=== PATIENT | male | born 1940 | race Caucasian/White ===

== ENCOUNTER 2019-05-24 11:57 | Inpatient (IN) | payer MEDICARE, BC ==
--- NOTE | 2019-05-24 12:09 | ED ---
Shortness of Breath - HPI Summary HPI Summary: The patient is an 80 y/o M arriving via ambulance to [facility] from [facility] with a chief complaint of SOB today. Labs were drawn at [facility] to find hemoglobin of 3.8. He endorses fatigue and denies any blood in stool or CP. En route, patient on 2L with O2 sat in high 80s%. CPAP at home. He is currently on Eliquis. PMHx: atrial fibrillation, DVT, CAD, HTN, HLD, angioplasty, CHF, COPD, sleep apnea, anemia, diabetes, chronic renal failure, dementia. Former smoker, no EtOH, no substance use. Medications reviewed. Allergies noted. 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 - [facility], EMS Onset/Duration: Still Present Current Severity: Moderate Dyspnea At: Rest Aggravating Factors: Nothing Alleviating Factors: Oxygen Associated Signs & Symptoms: Negative - Allergy/Home Medications Allergies/Adverse Reactions: Allergies Allergy/AdvReac Type Severity Reaction Status Date / Time clopidogrel Allergy Intermediate Rash Verified 05/24/19 14:03 Iodinated Contrast Media Allergy Intermediate Rash Verified 05/24/19 14:03 diphenhydramine AdvReac Intermediate Agitation Verified 05/24/19 14:03 pseudoephedrine AdvReac Intermediate Agitation Verified 05/24/19 14:03 morphine AdvReac Mild Hallucinati Verified 05/24/19 14:03 ons Home Medications: Home Medications Amiodarone TAB* [Cordarone Tab*] 200 mg PO QAM 06/06/12 [History Confirmed 05/24] Donepezil TAB* [Aricept 5 MG TAB*] 10 mg PO BEDTIME 06/06/12 [History Confirmed 05/24/19] Isosorbide Mononitrate ER TAB* [Imdur ER TAB*] 30 mg PO DAILY 02/24/15 [History Confirmed 05/24/19] Metoprolol Tartrate TAB* [Lopressor TAB*] 25 mg PO BID 02/24/15 [History Confirmed 05/24/19] Acetaminophen TAB* [Tylenol TAB*] 650 mg PO TID PRN 05/24/19 [History Confirmed 05/24/19] Al Hydrox/Mg Hydrox/Simet LIQ* [Maalox Plus*] 30 ml PO Q6H PRN 05/24/19 [ History Confirmed 05/24/19] Albuterol/Ipratropium NEB.SONIA* [Duoneb (Albuterol 2.5 MG/Ipratropium 0.5 MG)] 1 neb INH Q6H PRN 05/24/19 [History Confirmed 05/24/19] Apixaban* [Eliquis*] 5 mg PO BID 05/24/19 [History Confirmed 05/24/19] Artificial Tears* 15 ML BTL [Polyvinyl Alcohol 1.4% OPTH*] 4 drop BOTH EYES BID 05/24/19 [History Confirmed 05/24/19] Atorvastatin* [Lipitor*] 20 mg PO BEDTIME 05/24/19 [History Confirmed 05/24/19] Bisacodyl 10 mg SUPP [Dulcolax Supp*] 10 mg CO DAILY PRN 05/24/19 [History Confirmed 05/24/19] Diclofenac 1% GEL (NF) [Voltaren 1% GEL (NF)] 1 applic TOPICAL BID 05/24/19 [ History Confirmed 05/24/19] Dulaglutide (NF) [Trulicity (NF)] 1.5 mg SUBCUT TH 05/24/19 [History Confirmed 05/24/19] Eucalyptus/Menthol [Cough Drops] 5 mg PO Q4H PRN 05/24/19 [History Confirmed ] Famotidine TAB* [Pepcid 20 MG TAB*] 20 mg PO DAILY 05/24/19 [History Confirmed 05/24/19] Furosemide TAB* [Lasix TAB*] 20 mg PO BID 05/24/19 [History Confirmed 05/24/19] Insulin GLARGINE(*) [Lantus 100 unist/ml 10 ml VIAL (*)] 100 units SUBCUT QAM [History Confirmed 05/24/19] Insulin Glargine (Nf) [Toujeo Solostar Pen 300 units/ml 1.5 ml x 3 Pens (NF)] 120 units SUBCUT BEDTIME 05/24/19 [History Confirmed 05/24/19] Ketoconazole [Nizoral A-D] 1 applic TOPICAL MO 05/24/19 [History Confirmed 05/24] Lidocaine PATCH 5%* [Lidoderm 5% Patch*] 4 % TRANSDERM DAILY 05/24/19 [History Confirmed 05/24/19] Magnesium Hydroxide LIQ* [Milk of Magnesia LIQ*] 30 ml PO DAILY PRN 05/24/19 [ History Confirmed 05/24/19] Methyl Salicylate/Menthol [Muscle Rub Cream] 1 applic TOPICAL BID 05/24/19 [ History Confirmed 05/24/19] SitaGLIPtin (NF) [Januvia (NF)] 75 mg PO DAILY 05/24/19 [History Confirmed 05/24] Venlafaxine CAP (NF) [Effexor CAP (NF)] 75 mg PO DAILY 05/24/19 [History Confirmed 05/24/19] PMH/Surg Hx/FS Hx/Imm Hx Endocrine/Hematology History: Reports: Hx Anticoagulant Therapy - coumadin, Hx Diabetes, Hx Anemia Cardiovascular History: Reports: Hx Angioplasty, Hx Congenital Heart Disease, Hx Congestive Heart Failure, Hx Coronary Artery Disease, Hx Hypercholesterolemia , Hx Hypertension, Hx Peripheral Vascular Disease, Other Cardiovascular Problems /Disorders - had a cath previously, a fib, CAD Denies: Hx Pacemaker/ICD, Hx Syncope Respiratory History: Reports: Hx Chronic Obstructive Pulmonary Disease (COPD), Hx Seasonal Allergies - takes terell, Hx Sleep Apnea - CPAP at home Denies: Hx Asthma, Other Respiratory Problems/Disorders GI History: Reports: Hx Gastroesophageal Reflux Disease - takes omeprazole, Hx Irritable Bowel, Other GI Disorders - History of Pancreatitis Denies: Hx Ulcer History: Reports: Hx Chronic Renal Failure, Other Problems/Disorders - CKD Musculoskeletal History: Reports: Hx Arthritis, Hx Back Problems - Degenerative Spinal Disc Disease Denies: Other Musculoskeletal History Sensory History: Reports: Hx Cataracts - recent dx, Hx Contacts or Glasses, Hx Hearing Aid Denies: Hx Glaucoma Opthamlomology History: Reports: Hx Cataracts - recent dx, Hx Contacts or Glasses Denies: Hx Glaucoma Neurological History: Reports: Hx Dementia, Hx Headaches Denies: Hx Seizures, Other Neuro Impairments/Disorders Psychiatric History: Reports: Hx Anxiety, Hx Depression Denies: Hx Eating Disorder, Hx Panic Disorder, Hx of Violent Episodes Against Others - Cancer History Cancer Type, Location and Year: Status Post Angioplasty; Status Post Uvulopalatopharyngoplasty; Status Post Rotator Cuff Repair - Surgical History Surgical History: Yes Surgery Procedure, Year, and Place: TOTAL KNEE REPLACEMENT, VASECTOMY, HERNIA REPAIR, T&A, ROTATOR CUFF REPAIR LT SHOULDER, HEART CATHTERIZATION,NO STENTS Hx Anesthesia Reactions: No - Immunization History Date of Tetanus Vaccine: Up to Date Date of Influenza Vaccine: NONE - Family History Known Family History: Positive: Cardiac Disease - Social History Alcohol Use: None Hx Substance Use: No Substance Use Type: Reports: None Hx Tobacco Use: Yes Smoking Status (MU): Former Smoker Type: Cigarettes Length of Time of Smoking/Using Tobacco: 20 years Have You Smoked in the Last Year: No Review of Systems Positive: Fatigue Negative: Chest Pain Positive: Shortness Of Breath Negative: Other - blood in stool All Other Systems Reviewed And Are Negative: Yes Physical Exam - Summary Physical Exam Summary: Constitutional: Well-developed, Well-nourished, Alert. Appears weak/fatigued. (- ) Distressed Skin: Pale, Warm, Dry HENT: Normocephalic; Atraumatic Eyes: Conjunctiva normal Neck: Musculoskeletal ROM normal neck. (-) JVD, (-) Stridor, (-) Tracheal deviation Cardio: Rhythm regular, rate normal, Heart sounds normal; Intact distal pulses; The pedal pulses are 2+ and symmetric. Radial pulses are 2+ and symmetric. (-) Murmur Pulmonary/Chest wall: Effort normal. (-) Respiratory distress, (-) Wheezes, (-) Rales Abd: Soft, (-) tenderness, (+) Distension, (-) Guarding, (-) Rebound, Umbilical hernia noted Musculoskeletal: (+) BLE Edema Lymph: (-) Cervical adenopathy Neuro: Alert, Oriented x3, No focal deficits Psych: Mood and affect Normal Rectal: Brown stool, No gross blood Triage Information Reviewed: Yes Vital Signs Reviewed: Yes Procedures - Sedation Patient Received Moderate/Deep Sedation with Procedure: No Diagnostics - Laboratory Result Diagrams: 05/25/19 06:22 05/25/19 06:19 Lab Statement: Any lab studies that have been ordered have been reviewed, and results considered in the medical decision making process. - Radiology CXR Radiology Interpretation Completed By: Radiologist Summary of Radiographic Findings: Impression: Pulmonary interstitial edema with left basilar atelectasis versus consolidation. This imaging report was reviewed by Dr. Hawley. - EKG 1228 Cardiac Rate: NL - 63 BPM EKG Rhythm: Sinus Rhythm Summary of EKG Findings: An EKG at 1228 reveals normal sinus rhythm at 63 BPM. No ischemic changes. This EKG was reviewed and interpreted by Dr. Hawley. Re-Evaluation - Re-Evaluation First Eval Re-Evaluation Time: 13:45 Comment: Discussed results and plan for admission. Course/Dx - Course Course Of Treatment: 80 y/o M arriving via ambulance from [facility] with concern for SOB, fatigue, and labs drawn today with hgb of 3.8. Denies hematochezia, CP. Currently on Eliquis. PMHx: atrial fibrillation, DVT, CAD, HTN , HLD, angioplasty, CHF, COPD, sleep apnea, anemia, diabetes, chronic renal failure, dementia. Physical exam significant for patient appearing weak/fatigued , soft and distended although non-tender abdomen, umbilical hernia noted, pale skin, no focal deficits, and BLE edema. Rectal exam shows brown stool, negative for gross blood. Patient placed on court recording monitor. IV access obtained. Patient received fluids. Blood work significant for abnormalities including elevated WBCs of 14, anemia with RBCs of 1.5 and H&H of 3.8 and 13, MCH of 25, MCHC of 30, RDW of 20, abs neuts of 11.5, abs lymphs of 0.9, abs monos of 1.3, INR of 2.55, PTT of 38.6, BUN of 58, creatinine of 1.59, glucose of 106, calcium of 8.5. Negative troponin. RBCs administered for anemia. Stool occult positive for blood. An EKG at 1228 reveals normal sinus rhythm at 63 BPM, no ischemic changes. CXR impression reveals pulmonary interstitial edema with left basilar atelectasis versus consolidation. Patient received Kcentra. Dr. Hyde from hospitalist services accepts the patient for admission, pending Abd/Pel CT. All results discussed. Patient agreeable with plan. - Diagnoses Provider Diagnoses: Symptomatic anemia, GI bleed - Physician Notifications Discussed Care of Patient With: Julio Hyde - hospitalist Time Discussed With Above Provider: 13:00 Instructed by Provider To: Other - I discussed the patient's case with Dr. Hyde , who accepts the patient for admission, pending Abd/Pel CT. Discharge ED - Sign-Out/Discharge Documenting (check all that apply): Patient Departure - Patient accepted for admission by Dr. Hyde. - Discharge Plan Condition: Stable Disposition: ADMITTED TO [facility] - Billing Disposition and Condition Condition: STABLE Disposition: Admitted to [facility] - Attestation Statements Document Initiated by Jose: Yes Documenting Scribe: Radha Salcedo Provider For Whom Jose is Documenting (Include Credential): Dr. Jose Cruz Hawley DO Scribe Attestation: IRadha scribed for Dr. Jose Cruz Hawley DO on 05/25/19 at 1004. Scribe Documentation Reviewed: Yes Provider Attestation: The documentation as recorded by the Radha kulkarni accurately reflects the service I personally performed and the decisions made by me, Dr. Jose Cruz Hawley DO Status of Scribe Document: Viewed
[2019-05-24] MEDS ORDERED: NS 0.9% 1000 ML** 1,000 ML IV ONE (12:10)
[2019-05-24 12:57] LABS: Activated Partial Thrombo Time 38.6 seconds (26.0-38.0); INR 2.55 (0.82-1.09)
[2019-05-24 12:58] LABS: ABS Basophils 0.1 10^3/ul (0-0.2); ABS Eosinophils 0.1 10^3/ul (0-0.6); ABS Lymphocytes 0.9 10^3/ul (1.0-4.8); ABS Monocytes 1.3 10^3/ul (0-0.8); ABS Neutrophils 11.5 10^3/ul (1.5-7.7); ABS Nucleated RBC 0.1 10^3/ul; Eosinophil % 0.7 %; Hematocrit 13 % (42-52); Hemoglobin 3.8 g/dL (14.0-18.0); Lymphocyte % 6.6 %; Mean Corpuscular HGB Conc 30 g/dL (31-36); Mean Corpuscular Hemoglobin 25 pg (27-31); Mean Corpuscular Volume 86 fL (80-94); Mean Platelet Volume 7.6 fL (7.4-10.4); Nucleated Red Blood Cells % 0.9; Platelet Count 211 10^3/uL (150-450); Red Cell Distribution Width 20 % (10-15)
[2019-05-24 13:10] LABS: ALT 27 U/L (7-52); AST 28 U/L (13-39); Albumin 3.5 g/dL (3.2-5.2); Alkaline Phosphatase 76 U/L (34-104); Anion Gap 5 mmol/L (2-11); BUN/Creatinine Ratio 36.5 (8-20); Blood Urea Nitrogen 58 mg/dL (6-24); CO2 Carbon Dioxide 27 mmol/L (22-32); Calcium 8.5 mg/dL (8.6-10.3); Chloride 103 mmol/L (101-111); EGFR African American 50.9 (>60); EGFR Non-African American 42.1 (>60); Globulin 3.4 g/dL (2-4); Glucose 106 mg/dL (70-100); Potassium 4.4 mmol/L (3.5-5.0); Sodium 135 mmol/L (135-145); Total Protein 6.9 g/dL (6.4-8.9)
[2019-05-24 13:11] LABS: Troponin I 0.01 ng/mL (<0.03)
[2019-05-24] MEDS ORDERED: Dextrose 50% Syringe 50 ML* 25 GM/50 ML SYRINGE IV PUSH PRN (14:29)
--- NOTE | 2019-05-24 16:29 | HP ---
CC: Romelia Sanz NP * HISTORY AND PHYSICAL: DATE OF ADMISSION: 05/24/19 PRIMARY CARE PROVIDER: Romelia Sanz NP; [facility]. ATTENDING PHYSICIAN: Dr. Julio Hyde * (dictated by HONORIO vAilez). CHIEF COMPLAINT: Shortness of breath. HISTORY OF PRESENT ILLNESS: Mr. Pop is an 79-year-old male with a past medical history of CAD, diabetes, hypertension, hyperlipidemia, atrial fibrillation, on anticoagulation, who presented to the ER with complaints of shortness of breath. He states he is unsure how long he has been short of breath. When asked why he is here, he states "I don't know, you tell me." He is at times evasive in answering questions and tangential. He is seen in the ER wearing oxygen. He states he cannot remember if he usually wears oxygen, but it is reported that he does not wear oxygen at baseline. He denies blood in the stool and denies melena, although he is a poor historian. He denies recent fall or injury. No head or neck injury. He is a resident of [facility]. The patient does have a history of atrial fibrillation, for which he takes apixaban. In the ER, the patient received a full workup. He has a leukocytosis, severe anemia with hemoglobin of 3.8, MCV of 86. Creatinine is elevated at 1.59. Stool for occult blood is positive. EKG shows a rate of 63 with a first-degree AVB, T- wave inversion in aVL, flat T waves in V4 to V6. Chest x-ray shows pulmonary edema with left lower lobe atelectasis versus consolidation. He is receiving IV fluid normal saline at 150 cc per hour in the ER. Hospitalist team was asked to evaluate the patient for admission. PAST MEDICAL HISTORY: 1. Coronary artery disease. 2. Diabetes mellitus type 2, insulin-dependent. 3. Hypertension. 4. Hyperlipidemia. 5. Atrial fibrillation, on anticoagulation. 6. COPD. 7. GERD. 8. Depression. PAST SURGICAL HISTORY: Obtained from chart as the patient unable to contribute. 1. Left total knee arthroplasty. 2. Tonsillectomy/adenoidectomy. 3. Left ulnar nerve release. 4. UPPP. 5. Vasectomy. 6. Hernia. 7. Left shoulder repair. 8. Cardiac cath. HOME MEDICATIONS: 1. Acetaminophen 650 mg p.o. t.i.d. p.r.n. 2. Maalox 30 mL p.o. q.6 hours p.r.n. 3. DuoNeb 1 neb inhalation q.6 hours p.r.n. 4. Amiodarone 200 mg p.o. daily. 5. Apixaban 5 mg p.o. b.i.d. 6. Artificial Tears 4 drops to both eyes b.i.d. 7. Atorvastatin 20 mg p.o. at bedtime. 8. Bisacodyl 10 mg suppository [place] daily p.r.n. 9. Diclofenac 1% gel 1 application topically b.i.d. 10. Donepezil 10 mg p.o. at bedtime. 11. Dulaglutide 1.5 mg subcu . 12. Cough drops 5 mg p.o. q.4 hours p.r.n. 13. Famotidine 20 mg p.o. daily. 14. Furosemide 20 mg p.o. b.i.d. 15. Insulin glargine 120 units subcu q.h.s., 100 units subcu q.a.m. 16. Isosorbide mononitrate 30 mg p.o. daily. 17. Ketoconazole 1 application topically Monday. 18. Lidocaine patch 5% transdermal daily. 19. Magnesium hydroxide 30 mL p.o. daily p.r.n. 20. Muscle Rub 1 application topically b.i.d. 21. Metoprolol tartrate 25 mg p.o. b.i.d. 22. Sitagliptin 75 mg p.o. daily. 23. Venlafaxine 75 mg p.o. daily. ALLERGIES/ADVERSE REACTIONS: CLOPIDOGREL, rash; IODINATED CONTRAST, rash; DIPHENHYDRAMINE, agitation; PSEUDOEPHEDRINE, agitation; MORPHINE, hallucinations. FAMILY HISTORY: Brother had heart disease, sister had breast cancer. No family history of CVA or diabetes. SOCIAL HISTORY: The patient states he was a former smoker, 20-pack years but quit "a long time ago." He does not use alcohol. He lives at [facility]. He is . In the event that he is unable to make his own medical decisions, he has appointed his , Fina Pop to be his surrogate decision maker. REVIEW OF SYSTEMS: A 14-point review of systems has been performed and all the pertinent positives and negatives are in the HPI. All other systems are negative. PHYSICAL EXAMINATION GENERAL: Mr. Pop is a well-developed, well-nourished, obese, pale, elderly white male, who is sitting up in bed. He has some increased work of breathing and is currently on 2 L of oxygen. HEENT: PERRL. EOMI. Hearing is grossly intact. Oral mucous membranes are moist. There are no lesions. The pharynx is clear. Tongue is at midline. Palate elevates symmetrically. PULMONARY: Symmetrical chest expansion. No use of accessory muscles. Clear to auscultation bilaterally anteriorly without rhonchi, wheeze, or rales. CARDIOVASCULAR: Regular rate and rhythm with S1, S2 present. There is a systolic murmur. No rubs, clicks, or gallops. There is no JVD. There is 1+ pitting bilateral lower extremity edema with SANDRA stockings in place. ABDOMEN: Bowel sounds in all quadrants. Soft and nontender to palpation. There are no areas of ecchymosis. MUSCULOSKELETAL: Spine is nontender to palpation. There are no areas of ecchymosis in the trunk anteriorly or posteriorly. NEURO: The patient is awake. He is alert and oriented x3. He moves his extremities although slowly. DIAGNOSTIC STUDIES/LAB DATA: 1. CBC: WBC 14.0, RBC 1.5, HGB 3.8, HCT 13, MCV 86, platelets 211. 2. CMP: Sodium 135, potassium 4.4, chloride 103, carbon dioxide 27, BUN 58, creatinine 1.59, glucose 106. 3. Stool for occult blood positive. 4. EKG: Rate of 63, first-degree AV block, T-wave inversion in aVL, flat T- wave in V4 to V6. 5. Chest x-ray: Impression: Pulmonary interstitial edema with left basilar atelectasis versus consolidation. ASSESSMENT AND PLAN: Mr. Pop is an 79-year-old male with a past medical history of coronary artery disease, diabetes insulin-dependent, hypertension, hyperlipidemia, paroxysmal atrial fibrillation, on apixaban, who presented to the ER today with severe anemia and probable gastrointestinal bleed. The patient will be admitted for: 1. Anemia with gastrointestinal bleeding. The patient presents with shortness of breath and an H and H of 3.8 and 13 respectively. He is on apixaban. He will be given Kcentra. He will receive 2 units of packed red blood cells. We will check H and H q.6 hours. He will be placed on pantoprazole b.i.d. GI has been consulted and plans to see the patient at this time. They recommend sips of clear liquids with advancement to clear liquids if the patient adamantly requests food. He will then be n.p.o. after midnight for possible scoping in the morning. We will continue to monitor his H and H and give packed cells as necessary. 2. Acute kidney injury. The patient presents with a creatinine of 1.59. He does not appear to have baseline chronic kidney disease. His acute kidney injury is likely due to his severe anemia and hypoperfusion of the kidneys. We will recheck kidney function in the morning after the patient receives packed cells. 3. Chest x-ray abnormality. Chest x-ray shows pulmonary edema and atelectasis versus consolidation in the left lung. The patient also has associated leukocytosis but is afebrile and states he feels generally well. He is short of breath, although this is likely due to his anemia. At this time, I have a low suspicion for pneumonia and will therefore hold off on antibiotics. We will recheck CBC in the a.m. to trend the patient's white blood cell count as well as his symptoms. 4. Diabetes mellitus. The patient is on dulaglutide, Toujeo, and sitagliptin at home. We will hold the patient's sitagliptin and dulaglutide. He takes long -acting insulin, 100 units q.a.m., 120 units q.p.m. At this time in the setting of him being n.p.o., we will order 40 units b.i.d. and monitor blood sugars with fingersticks a.c. and h.s. that will be covered by lispro sliding scale. 5. Coronary artery disease. Continue home medications metoprolol, isosorbide, furosemide. 6. Atrial fibrillation. Continue amiodarone. Hold apixaban at this time in the setting of gastrointestinal bleeding. 7. Hyperlipidemia. Continue atorvastatin. 8. Gastroesophageal reflux disease. We will hold famotidine at this time. He has been placed on pantoprazole IV b.i.d. 9. Depression. Continue venlafaxine. 10. Dementia. Continue donepezil. 11. DVT prophylaxis: According to DVT Risk Assessment, the patient scores 4, placing him at high risk. He will be placed on SCDs. We will hold his home anticoagulation in the setting of gastrointestinal bleeding. 12. Code status: DNR. TIME SPENT: Approximately 60 minutes was spent on this admission, greater than half that time was spent [id number] with the patient obtaining history, performing a physical, and reviewing the plan of care. The case has been discussed with my attending, Dr. Hyde, who is in agreement with the plan of care. HONORIO COLÓN [id number]/CPS #: [id number] MTDD
[2019-05-24 17:40] LABS: % Iron Saturation 4 % (15-55); Iron 23 ug/dL (50-212); Total Iron Binding Capacity 573 mcg/dL (250-450); Transferrin 409 mg/dL (203-362)
[2019-05-24] MEDS: Insulin LISPRO* 1 UNITS UNIT SUBCUT SCH ×2 (17:44→21:43)
[2019-05-24 18:02] LABS: Ferritin 8.6 ng/mL (24-336)
[2019-05-24 18:06] LABS: Folate 5.16 ng/mL (>3.99)
[2019-05-24] MEDS: Pantoprazole IV* 40 MG IV SCH ×2 (18:27→22:42)
--- NOTE | 2019-05-24 18:42 | CONS ---
CC: HONORIO Avilez GASTROENTEROLOGY CONSULT REPORT: DATE OF CONSULT: 05/24/19 REQUESTING PROVIDER: HONORIO Avilez REASON FOR CONSULT: Severe anemia. HISTORY OF PRESENT ILLNESS: Mr. Pop is an 79-year-old gentleman with multiple medical comorbidities including CAD; diabetes type 2 on insulin, AFib on anticoagulation; COPD, sleep apnea, CKD, and chronic anemia, who is admitted with severe symptomatic anemia. History is largely obtained from the chart as Mr. Pop is a poor historian. He is aware that he is in the hospital in [facility], although he is not aware of the date or time. Apparently, he was brought to the ED for shortness of breath, which he complained about at [facility] where he is a resident. He is not aware of how long he has been feeling that way. Denies any other symptoms. Initial studies in the ED were notable for leukocytosis and anemia with a hemoglobin of 3.8. The patient was admitted to the medicine unit and given 1 unit of blood GI consulted. On interview, Mr. Pop says that he has been having fairly regular bowel movements, although he is unable to estimate how often these occur. He has not been having more frequent bowel movements or diarrhea than normal. He has not noticed any melena or hematochezia. Of note, the patient had a brown stool that was cleaned by nursing. Hemoccult positive, but no gross blood noted. Denies any abdominal pain, nausea, vomiting, reflux, dysphagia, change in bowel habits. No visible bleeding elsewhere noted. The patient is on Eliquis for atrial fibrillation. Has a history of intermittent anemia. Was seen by GI in 2015 for anemia. EGD at that time demonstrated mild chronic gastritis. It seems that he had had a colonoscopy in [facility] within the last few years , although I do not have a report to review today. PAST MEDICAL HISTORY: 1. Coronary artery disease. 2. Type 2 diabetes, on insulin. 3. Hypertension. 4. Hyperlipidemia. 5. Atrial fib, on anticoag. 6. COPD. 7. Sleep apnea. 8. Depression. 9. Anemia. 10. Question dementia. PAST SURGICAL HISTORY: Total knee replacement, vasectomy, hernia repair, tonsillectomy and adenoids removed, rotator cuff repair, heart catheterization. HOME MEDICATIONS: 1. Acetaminophen as needed. 2. Maalox as needed. 3. DuoNeb as needed. 4. Amiodarone 200 mg daily. 5. Apixaban 5 mg twice daily. 6. Atorvastatin 20 mg at bedtime. 7. Donepezil 10 mg at bedtime. 8. Dulaglutide 1.5 mg subcutaneously weekly. 9. Famotidine 20 mg daily. 10. Furosemide 20 mg twice daily. 11. Insulin glargine 100 units in the morning and 120 units at bedtime. 12. Isosorbide mononitrate 30 mg daily. 13. Magnesium hydroxide p.r.n. 14. Metoprolol 25 mg twice daily. 15. Sitagliptin 75 mg daily. 16. Venlafaxine 75 mg daily. ALLERGIES: Allergies per chart include CLOPIDOGREL, IODINATED CONTRAST, DIPHENHYDRAMINE, PSEUDOEPHEDRINE, and MORPHINE. FAMILY HISTORY: No known GI or liver disease. SOCIAL HISTORY: Former smoker, quit a number of years ago. No alcohol or drug use. The patient denies heavy alcohol use in the past. Resident at [facility]. . REVIEW OF SYSTEMS: A 12 point complete review of systems notable only for shortness of breath. PHYSICAL EXAM: Vitals: Afebrile, heart rate in the 50s, blood pressure 119/45, 99% on 2 L. General: Extremely pale, obese gentleman. Elderly. No acute distress. HEENT: Moist mucous membranes. Cardiovascular: Regular rate and rhythm. Pulmonary: Clear in the anterior lung mosquera. Belly breathing noted with some increased work of breathing with conversation. Abdomen: Soft. Minimally tender in the upper abdomen. Distended with suspected fluid wave. Extremities: Edema with leg wraps in place. Skin: Very pale. Neuro: A and O x1 to 2. He knows that he is in [facility], but does not answer [place] when asked what town and city we are in. He is unaware of either month or year. DIAGNOSTIC STUDIES/LAB DATA: Labs reviewed. White count 14, hemoglobin 3.8, hematocrit 13. Last labs on file include a hemoglobin of 12.1 in May 2018. Current MCV is 86, platelet count 211. INR 2.55. BUN 58, creatinine 1.59. AST 28, ALT 27, bilirubin 0.6. BNP 354, troponin 0.01. Imaging: CT abdomen and pelvis without contrast was performed. There was left more than right bibasilar airspace opacification with air bronchograms concerning for pneumonia. There was also decreased liver volume with new cirrhotic morphology. No splenomegaly was noted. There was moderate predominantly water attenuation ascites, although there was increase in attenuation in the perisplenic region. Per Radiology, it was unclear if this was artifact or not. There was generalized anasarca, diverticulosis, and cardiomegaly also noted on the CT scan. Chest x-ray read as pulmonary interstitial edema with left basilar atelectasis versus consolidation. IMPRESSION AND RECOMMENDATIONS: Mr. Pop is an 79-year-old gentleman with multiple medical comorbidities including atrial fibrillation, on anticoagulation ; chronic obstructive pulmonary disease; type 2 diabetes, on insulin; chronic kidney disease; coronary artery disease; and question dementia, who is admitted with acute on chronic severe anemia. Hemodynamically stable. No overt bleeding per report or on exam. Stool was noted to be brown, although Hemoccult positive. The patient has anasarca and ascites with possible cirrhotic morphology seen on CT. This would be a new diagnosis. As we do not have any labs for the past year, I am not certain the rate of hemoglobin drop, although I suspect that the anemia is subacute to chronic in nature. Source could be upper or lower.Eliquis is certainly a risk factor for oozing or bleeding. I agree with stabilization with transfusion. Recommend optimizing patient from a cardiopulmonary standpoint given fluid overload with possible pneumonia. Once stable, we can discuss timing of endoscopic evaluation with an EGD. In the interim, I recommend IV PPI b.i.d, trending CBC every 6 to 8 hours, and holding the anticoagulation. No NSAIDs. Recommend obtaining an ultrasound of the abdomen with particular attention to the liver to evaluate for any liver mass. This study can also evaluate for intraabdominal hematoma (considered given the possible higher attenuation in the ascites). Please check iron studies, vitamin B12, folate, and chronic hepatitis panel. Clear diet okay for now as the patient appears stable without any active bleeding. Thank you very much for this consult. Please contact GI if any acute clinical change. [id number]/[facility] #: [id number] [facility]
[2019-05-24] MEDS: Analgesic BALM* 114 GM TOPICAL SCH (20:48)
[2019-05-24] MEDS: Furosemide TAB* 20 MG PO SCH (20:48)
[2019-05-24] MEDS: Artificial Tears* 15 ML BTL BOTH EYES SCH (20:49)
[2019-05-24] MEDS: Atorvastatin* 20 MG TAB PO SCH (20:49)
[2019-05-24] MEDS ORDERED: Insulin GLARGINE(*) 1 UNITS UNIT SUBCUT SCH (21:00)
[2019-05-24] MEDS: Metoprolol Tartrate TAB* 25 MG PO SCH (21:20)
[2019-05-24] MEDS: Insulin GLARGINE(*) 1 UNITS UNIT SUBCUT SCH (22:15)
[2019-05-24 22:20] LABS: Hematocrit 17 % (42-52); Hemoglobin 5.4 g/dL (14.0-18.0)
[2019-05-24] MEDS ORDERED: Furosemide IV* 10 MG/ML 2 ML VIAL (20 MG) IV ONE (22:36)
[2019-05-24] MEDS: Lidocaine Patch REMOVE* 1 NOTE MISC PATCH OFF SCH (22:39)
[2019-05-25] MEDS ORDERED: Furosemide IV* 10 MG/ML 2 ML VIAL (20 MG) IV ONE
[2019-05-25] MEDS: Albuterol/Ipratropium NEB.SOL* Albuterol 2.5 MG/Ipratropium 0.5 MG 3 ML INH PRN ×3 (03:11→23:48)
[2019-05-25 06:34] LABS: ABS Eosinophils 0.1 10^3/ul (0-0.6); ABS Monocytes 0.9 10^3/ul (0-0.8); ABS Neutrophils 8.6 10^3/ul (1.5-7.7); ABS Nucleated RBC 0.1 10^3/ul; Eosinophil % 0.8 %; Hematocrit 21 % (42-52); Hemoglobin 6.9 g/dL (14.0-18.0); Lymphocyte % 9.4 %; Mean Corpuscular HGB Conc 33 g/dL (31-36); Mean Corpuscular Hemoglobin 28 pg (27-31); Mean Corpuscular Volume 85 fL (80-94); Mean Platelet Volume 7.4 fL (7.4-10.4); Nucleated Red Blood Cells % 0.8; Platelet Count 152 10^3/uL (150-450); Red Cell Distribution Width 17 % (10-15); White Blood Count 10.6 10^3/uL (3.5-10.8)
[2019-05-25 06:35] LABS: Hematocrit 21 % (42-52)
[2019-05-25 06:49] LABS: BUN/Creatinine Ratio 41.7 (8-20); Calcium 8.6 mg/dL (8.6-10.3); EGFR African American 57.1 (>60); EGFR Non-African American 47.2 (>60); Potassium 4.4 mmol/L (3.5-5.0)
[2019-05-25] MEDS: Insulin LISPRO* 1 UNITS UNIT SUBCUT SCH ×4 (08:42→23:33)
[2019-05-25] MEDS ORDERED: Insulin GLARGINE(*) 1 UNITS UNIT SUBCUT SCH (09:00)
[2019-05-25] MEDS: Insulin GLARGINE(*) 1 UNITS UNIT SUBCUT SCH ×2 (09:34→23:32)
--- NOTE | 2019-05-25 09:57 | PN ---
Subjective Date of Service: 05/25/19 Interval History: Thirsty and requesting water this AM Hypoglycemic requiring crackers otherwise asymptomatic Abdomen feels bloated Feels like he can't urinate but was able to prior to straight cath - urinated prior to straight cath Objective Active Medications: Albuterol/Ipratropium (Duoneb (Albuterol 2.5 Mg/Ipratropium 0.5 Mg)) 1 neb INH Q6H PRN PRN Reason: SOB/WHEEZING Last Admin: 05/25/19 03:11 Dose: 1 neb Amiodarone HCl (Cordarone Tab*) 200 mg PO QAM [facility] Atorvastatin Calcium (Lipitor*) 20 mg PO BEDTIME [facility] Last Admin: 05/24/19 20:49 Dose: 20 mg Dextrose (D50w Syringe 50 Ml*) 12.5 gm IV PUSH .FOR FS < 60 - SS PRN PRN Reason: FS < 60 Doxycycline Hyclate (Vibramycin Cap(*)) 100 mg PO BID [facility] Furosemide (Lasix Tab*) 20 mg PO BID [facility] Last Admin: 05/24/19 20:48 Dose: 20 mg Ceftriaxone Sodium 1 gm/ (Sodium Chloride) 50 mls @ 100 mls/hr IVPB Q24H [facility] Insulin Glargine (Lantus(*)) 40 units SUBCUT BID [facility] Last Admin: 05/25/19 09:34 Dose: Not Given Insulin Human Lispro (Humalog*) 0 units SUBCUT ACHS [facility]; Protocol Last Admin: 05/25/19 08:42 Dose: Not Given Isosorbide Mononitrate (Imdur Er Tab*) 30 mg PO DAILY [facility] Lidocaine (Lidoderm 5% Patch*) 1 patch TRANSDERM DAILY [facility] Metoprolol Tartrate (Lopressor Tab*) 25 mg PO BID [facility] Last Admin: 05/24/19 21:20 Dose: 25 mg Multi-Ingredient Liniment/Rub (Roberto Rice*) 1 applic TOPICAL BID [facility] Last Admin: 05/24/19 20:48 Dose: 1 applic Pantoprazole Sodium (Protonix Iv*) 40 mg IV BID [facility] Last Admin: 05/24/19 22:42 Dose: Not Given Pharmacy Profile Note (Lidocaine Patch Remove*) 1 note PATCH OFF BEDTIME [facility] Last Admin: 05/24/19 22:39 Dose: Not Given Polyvinyl Alcohol (Polyvinyl Alcohol 1.4% Opth*) 4 drop BOTH EYES BID [facility] Last Admin: 05/24/19 20:49 Dose: 4 drop Venlafaxine HCl (Effexor Xr Cap*) 75 mg PO DAILY [facility]; Protocol Vital Signs - 8 hr 05/25/19 05/25/19 05/25/19 02:26 02:58 03:15 Temperature 97.1 F 97.1 F Pulse Rate 59 59 62 Respiratory 20 20 18 Rate Blood Pressure 116/46 113/49 (mmHg) O2 Sat by Pulse 99 98 100 Oximetry 05/25/19 05/25/19 05/25/19 03:17 05:46 07:30 Temperature 97.1 F 97.0 F 97.1 F Pulse Rate 59 58 57 Respiratory 20 19 20 Rate Blood Pressure 118/47 107/47 108/45 (mmHg) O2 Sat by Pulse 100 96 95 Oximetry 05/25/19 07:54 Temperature 97.5 F Pulse Rate 54 Respiratory 20 Rate Blood Pressure 112/47 (mmHg) O2 Sat by Pulse 92 Oximetry Oxygen Devices in Use Now: Nasal Cannula Appearance: NAD Eyes: No Scleral Icterus, PERRLA Ears/Nose/Mouth/Throat: - - dry mm Neck: NL Appearance and Movements; NL JVP, Trachea Midline Respiratory: Symmetrical Chest Expansion and Respiratory Effort, Clear to Auscultation - rales in bases up 04/06 Cardiovascular: RRR Abdominal: - - distended, NTTP, no rebounding or guarding Skin: No Rash or Ulcers Neurological: Alert and Oriented x 3 Result Diagrams: 05/25/19 15:22 05/25/19 06:19 Microbiology and Other Data: Microbiology 05/24/19 16:15 Nasal Screen MRSA (PCR) - Final Nasal Mrsa Not Detected 05/24/19 12:12 Stool Occult Blood (ALISHA) - Final Stool Assess/Plan/Problems-Billing Assessment: 79 M h/o IDDM, CAD, afib on AC, COPD p/w shortness of breath found with profound anemia (Hb 3.8) - Patient Problems (1) Anemia Comment: Hb 6.9 this evening on recheck. 1 additional unit given slowly received 4 units PRBC and 1 U plasma Suspect slow bleed or missed large bleed. NPO after midnight with planned endoscopic evaluation tomorrow. PPI IV (2) Pneumonia Comment: suspect left basilar PNA started CTX and doxy (3) Diabetes Comment: takes 220 mg long acting at home decreased to 40 BID while NPO but was still hypoglycemic this AM freuqent checks continue lowered dose long acting insulin (4) Afib Comment: c/w metoprolol, amiodarone. holding all anticoagulation (5) DVT prophylaxis Comment: SCDs (6) Acute kidney injury Current Visit: Yes Status: Acute Code(s): N17.9 - ACUTE KIDNEY FAILURE, UNSPECIFIED SNOMED Code(s): 65975330
[2019-05-25] MEDS: Isosorbide Mononitrate ER TAB* 30 MG PO SCH (10:38)
[2019-05-25] MEDS: Amiodarone TAB* 200 MG PO SCH (10:39)
[2019-05-25] MEDS: Furosemide TAB* 20 MG PO SCH ×2 (10:39→20:40)
[2019-05-25] MEDS: Metoprolol Tartrate TAB* 25 MG PO SCH ×2 (10:39→20:39)
[2019-05-25] MEDS: Venlafaxine EXT RELEASE CAP* 75 MG PO SCH (10:39)
[2019-05-25] MEDS: Pantoprazole IV* 40 MG IV SCH ×2 (10:40→20:39)
[2019-05-25] MEDS: cefTRIAXone(*) 1 GM in NS 0.9% 50 ML* 50 ML IVPB SCH (11:03)
[2019-05-25] MEDS: Lidocaine PATCH 5%* 1 PATCH TRANSDERM SCH (11:05)
[2019-05-25] MEDS: Analgesic BALM* 114 GM TOPICAL SCH ×2 (11:06→20:40)
[2019-05-25] MEDS: Artificial Tears* 15 ML BTL BOTH EYES SCH ×2 (11:06→20:40)
[2019-05-25] MEDS: DOXYcycline CAP(*) 100 MG PO SCH ×2 (11:19→20:39)
[2019-05-25 15:28] LABS: Hematocrit 21 % (42-52); Hemoglobin 6.9 g/dL (14.0-18.0)
[2019-05-25] MEDS ORDERED: Furosemide IV* 10 MG/ML VIAL (40 MG) IV SLOW PU ONE (17:35)
[2019-05-25 20:15] LABS: Hematocrit 22 % (42-52); Hemoglobin 7.2 g/dL (14.0-18.0)
[2019-05-25] MEDS: Atorvastatin* 20 MG TAB PO SCH (20:40)
[2019-05-25] MEDS ORDERED: Furosemide IV* 10 MG/ML 2 ML VIAL (20 MG) IV SLOW PU ONE (21:08)
[2019-05-25] MEDS: Acetaminophen TAB* 325 MG PO PRN (23:31)
[2019-05-25] MEDS: Lidocaine Patch REMOVE* 1 NOTE MISC PATCH OFF SCH (23:32)
[2019-05-26 00:53] LABS: Hematocrit 20 % (42-52); Hemoglobin 6.7 g/dL (14.0-18.0)
[2019-05-26] MEDS: Albuterol/Ipratropium NEB.SOL* Albuterol 2.5 MG/Ipratropium 0.5 MG 3 ML INH PRN ×3 (06:05→22:49)
[2019-05-26 06:19] LABS: Hematocrit 19 % (42-52); Hemoglobin 6.3 g/dL (14.0-18.0)
[2019-05-26 06:34] LABS: BUN/Creatinine Ratio 41.7 (8-20); Calcium 8.4 mg/dL (8.6-10.3); EGFR African American 57.1 (>60); EGFR Non-African American 47.2 (>60); Potassium 4.1 mmol/L (3.5-5.0)
[2019-05-26 07:28] LABS: Hepatitis B Surface Ab Not Immune (Immune)
[2019-05-26 07:29] LABS: Hepatitis C Antibody Negative (Negative)
[2019-05-26] MEDS: Insulin LISPRO* 1 UNITS UNIT SUBCUT SCH ×4 (08:00→22:25)
[2019-05-26] MEDS: Pantoprazole IV* 40 MG IV SCH ×3 (11:19→22:32)
[2019-05-26] MEDS: cefTRIAXone(*) 1 GM in NS 0.9% 50 ML* 50 ML IVPB SCH ×2 (11:19→13:04)
[2019-05-26] MEDS: Furosemide IV* 10 MG/ML VIAL (40 MG) IV SLOW PU ONE ×2 (11:19→13:04)
[2019-05-26] MEDS: Insulin GLARGINE(*) 1 UNITS UNIT SUBCUT SCH ×2 (11:20→22:24)
[2019-05-26] MEDS: Artificial Tears* 15 ML BTL BOTH EYES SCH ×2 (11:24→22:26)
[2019-05-26] MEDS: Analgesic BALM* 114 GM TOPICAL SCH ×2 (11:24→22:36)
[2019-05-26] MEDS: Isosorbide Mononitrate ER TAB* 30 MG PO SCH (11:25)
[2019-05-26] MEDS: Acetaminophen TAB* 325 MG PO PRN (11:25)
[2019-05-26] MEDS: Venlafaxine EXT RELEASE CAP* 75 MG PO SCH (11:27)
[2019-05-26] MEDS: Amiodarone TAB* 200 MG PO SCH (11:27)
[2019-05-26] MEDS: DOXYcycline CAP(*) 100 MG PO SCH (11:28)
[2019-05-26] MEDS: Lidocaine PATCH 5%* 1 PATCH TRANSDERM SCH (11:28)
[2019-05-26] MEDS: Furosemide TAB* 20 MG PO SCH ×2 (11:28→22:15)
[2019-05-26] MEDS: Metoprolol Tartrate TAB* 25 MG PO SCH ×2 (11:28→22:16)
--- NOTE | 2019-05-26 13:29 | PN ---
Subjective Date of Service: 05/26/19 Interval History: HD 3 on 05/26 Overnight: Drop in Hb Vitals: stable; on 3 L of oxygen Patient seen and examined at bedside. patient states that he is having difficulty in breathing. He denies chest pain and palpitation. -Patient is alert and oriented but forgetful patient likely having retention receiving BT Objective Active Medications: Acetaminophen (Tylenol Tab*) 650 mg PO Q6H PRN PRN Reason: PAIN - MILD Last Admin: 05/26/19 11:25 Dose: 650 mg Albuterol/Ipratropium (Duoneb (Albuterol 2.5 Mg/Ipratropium 0.5 Mg)) 1 neb INH Q4H PRN PRN Reason: SOB/WHEEZING Last Admin: 05/26/19 10:18 Dose: 1 neb Amiodarone HCl (Cordarone Tab*) 200 mg PO QAM [facility] Last Admin: 05/26/19 11:27 Dose: 200 mg Atorvastatin Calcium (Lipitor*) 20 mg PO BEDTIME [facility] Last Admin: 05/25/19 20:40 Dose: 20 mg Dextrose (D50w Syringe 50 Ml*) 12.5 gm IV PUSH .FOR FS < 60 - SS PRN PRN Reason: FS < 60 Doxycycline Hyclate (Vibramycin Cap(*)) 100 mg PO BID [facility] Last Admin: 05/26/19 11:28 Dose: 100 mg Furosemide (Lasix Tab*) 20 mg PO BID [facility] Last Admin: 05/26/19 11:28 Dose: 20 mg Ceftriaxone Sodium 1 gm/ (Sodium Chloride) 50 mls @ 100 mls/hr IVPB Q24H [facility] Last Admin: 05/26/19 13:04 Dose: 100 mls/hr Insulin Glargine (Lantus(*)) 40 units SUBCUT BID [facility] Last Admin: 05/26/19 11:20 Dose: 40 units Insulin Human Lispro (Humalog*) 0 units SUBCUT ACHS [facility]; Protocol Last Admin: 05/26/19 11:29 Dose: Not Given Isosorbide Mononitrate (Imdur Er Tab*) 30 mg PO DAILY [facility] Last Admin: 05/26/19 11:25 Dose: 30 mg Lidocaine (Lidoderm 5% Patch*) 1 patch TRANSDERM DAILY [facility] Last Admin: 05/26/19 11:28 Dose: 1 patch Metoprolol Tartrate (Lopressor Tab*) 25 mg PO BID [facility] Last Admin: 05/26/19 11:28 Dose: 25 mg Multi-Ingredient Liniment/Rub (Roberto Rice*) 1 applic TOPICAL BID [facility] Last Admin: 05/26/19 11:24 Dose: 1 applic Pantoprazole Sodium (Protonix Iv*) 40 mg IV BID [facility] Last Admin: 05/26/19 13:04 Dose: 40 mg Pharmacy Profile Note (Lidocaine Patch Remove*) 1 note PATCH OFF BEDTIME [facility] Last Admin: 05/25/19 23:32 Dose: 1 note Polyvinyl Alcohol (Polyvinyl Alcohol 1.4% Opth*) 4 drop BOTH EYES BID [facility] Last Admin: 05/26/19 11:24 Dose: 4 drop Venlafaxine HCl (Effexor Xr Cap*) 75 mg PO DAILY [facility]; Protocol Last Admin: 05/26/19 11:27 Dose: 75 mg Vital Signs - 8 hr 05/26/19 05/26/19 06:08 07:15 Temperature 97.0 F Pulse Rate 64 66 Respiratory 18 18 Rate Blood Pressure 127/50 (mmHg) O2 Sat by Pulse 97 96 Oximetry Oxygen Devices in Use Now: Nasal Cannula Exam: Oxygen Devices in Use Now: Nasal Cannula Appearance: NAD Eyes: No Scleral Icterus, PERRLA Ears/Nose/Mouth/Throat: - - dry mm Neck: NL Appearance and Movements; NL JVP, Trachea Midline Respiratory: Symmetrical Chest Expansion and Respiratory Effort, crackles heard on bilateral lungs upto mid-lungs Cardiovascular: RRR Abdominal: - - distended, NTTP, no rebounding or guarding Skin: No Rash or Ulcers Neurological: Alert and Oriented x 3 Result Diagrams: 05/26/19 14:55 05/26/19 06:05 Microbiology and Other Data: Microbiology 05/24/19 16:15 Nasal Screen MRSA (PCR) - Final Nasal Mrsa Not Detected 05/24/19 12:12 Stool Occult Blood (ALISHA) - Final Stool Assess/Plan/Problems-Billing Assessment: 79 M h/o IDDM, CAD, afib on AC, COPD p/w shortness of breath found with profound anemia (Hb 3.8) s/p 5 U PRBC and stool OBT positive - Patient Problems (1) Anemia Comment: -Hb of 6.3 this morning -was 3.8 on presentation; received 5 U BT till 05/26 -stool OBT positive -likey GI- ?chronic gastritis vs AVM -Endoscopy showing gastric ulcer and esophageal varices but no active bleeding -Continue PPI IV -Hold anticoagulant -MOnitor Hb (2) Pneumonia Comment: -has consolidation on CT -CXR today showing increasing infiltrates. -started on ceftriaxone and azithro(05/25) -pending urine strep and pneumo Ag -QTC is 484 (3) Ascites Current Visit: Yes Status: Acute Code(s): R18.8 - OTHER ASCITES SNOMED Code(s): 736319161 Comment: -New onset moderate ascites -Has esophageal varices as well on EGD -will have to do US liver for liver study -If cirrhotic then we should do diagnostic para (4) Elevated serum creatinine Current Visit: Yes Status: Acute Code(s): R79.89 - OTHER SPECIFIED ABNORMAL FINDINGS OF BLOOD CHEMISTRY SNOMED Code(s): 716450379 Comment: -came in with creat of 1.59 -last creat 0.83 on 05/18/18- so not sure if this is THIERNO(pre-renal) or has CKD since 1 year; although his creat is 1.44 after fluids -So keep trending Creatinine (5) Acute exacerbation of CHF (congestive heart failure) Current Visit: No Status: Acute Code(s): I50.9 - HEART FAILURE, UNSPECIFIED SNOMED Code(s): 606025035 Comment: -e/o diastolic HF on past TTE with preserved EF in 2014 -now has crackles and SOB and increased oxygen requirement -likely from Blood transfusion -will give lasix and repeat Echo -If BT required again; transfuse slowly (6) Dementia Current Visit: No Status: Acute Code(s): F03.90 - UNSPECIFIED DEMENTIA WITHOUT BEHAVIORAL DISTURBANCE SNOMED Code(s): 94254701 Comment: -Patient is forgetful and baseline dementia -Continue donepezil (7) Afib Comment: -c/w metoprolol, amiodarone. -holding all anticoagulation (8) Diabetes Comment: -takes 220 mg long acting at home -decreased to 40 BID On lispro ss A1c is 5.9 (9) DVT prophylaxis Current Visit: Yes Status: Acute Code(s): Z29.9 - ENCOUNTER FOR PROPHYLACTIC MEASURES, UNSPECIFIED SNOMED Code(s): 556977456 Comment: -SCD (10) DNR (do not resuscitate) Current Visit: Yes Status: Acute Status and Disposition: Inpatient GI following Attending: Alin Parker Attestation Documenting Resident: Crystal Cisneros Supervising Physician: Alin Parker Attending/Supervising Physician Comment: Agree with plan as outlined in note from Dr. Cisneros today unless indicated. 79 M p/w SOB found with profound anemia s/p 5 U PRBC and gastric ulcer on EGD. Also noted with PNA now on abx and cirrhosis based on CT and esophageal varices with new ascites. Continue to trend CBC s/p EGD Abx for PNA Consider diagnostic para in setting of new ascites and new dx cirrhosis FSG for diabetes o nlower dose lantus - will need to confirm home dose which is 210/day total long acting Attestation: This service has been performed in part by a resident under the direction of a teaching physician.I, Alin Parker, performed the service, or was physically present during the critical, or valdivia portions of the service, furnished by the resident. I participated in the management of the patient.
[2019-05-26] MEDS ORDERED: fentaNYL* 50 MCG/ML 2 ML VIAL (100 MCG VIAL) ONE (13:42)
[2019-05-26] MEDS ORDERED: Midazolam* 1 MG/ML 10 ML VIAL (10 MG) ONE (13:43)
[2019-05-26 15:03] LABS: Hematocrit 22 % (42-52); Hemoglobin 7.3 g/dL (14.0-18.0)
--- NOTE | 2019-05-26 15:31 | PRO ---
DATE OF PROCEDURE: 05/26/19 - ROOM #[id number] PROCEDURE: EGD. MEDICATIONS GIVEN: Midazolam 2 mg IV, Fentanyl 25 mcg IV. DESCRIPTION OF PROCEDURE: Full disclosure of risks was reviewed with the patient as detailed on the consent form. Reversal of DNR was discussed with the patient and his on the phone. Consent was given by to reverse DNR during the procedure. A bite-block was placed between the patient's teeth. An adult gastroscope was then inserted into the patient's mouth and advanced down the esophagus, into the stomach, and into the distal duodenum. Findings and interventions are described below. FINDINGS: Esophagus was notable for medium to large esophageal varices. There was no stigmata of recent bleeding such as samayoa-red spot, red maged sign, or nipple sign. There was luminal narrowing in the distal esophagus related to the varices. Scope was advanced through the GE junction into the stomach. Stomach was examined in the forward and retroflexed views. Stomach was empty without any fresh or old blood. Gastric antrum was notable for nodular erythema. Retroflexion was performed. There were no gastric varices seen. In the fundus, there was a 1 cm clean-based ulcer. There was also a small nodule near this ulcer, which may represent polyp. Biopsy was not performed given the benign appearance of the polyp as well as the clinical context of acute GI bleeding evaluation. On retroflexion in the fundus and proximal gastric body, there appeared to be mild portal hypertensive gastropathy. Retroflexion was done. Scope was then advanced into the duodenum to at least the third portion. There was no fresh or old blood. There was geller bilious fluid. No ulcers. Mucosa was normal. Scope was then withdrawn from the patient. The patient tolerated the procedure fairly well, though he was noted to have some labored breathing and coarse breath sounds during the sedation, which is why we proceeded with very light sedation. The patient was recovered in the GI recovery area. IMPRESSION: 1. Complete upper endoscopy to the distal duodenum. 2. Medium to large size esophageal varices with high-risk stigmata. I do not think that these are the source of the patient's acute anemia, particularly given the absence of overt bleeding. 3. Gastric fundus clean-based ulcer. Certainly could be the source of bleeding in the setting of anticoagulation. Biopsy obtained for CLOtest. 4. Nodular antral erythema. Possible that this also could have contributed to oozing while on anticoagulation. 5. Mild portal hypertensive gastropathy. FOLLOWUP: 1. Await CLOtest. 2. Continue PPI b.i.d. Can start oral PPI once tolerating diet and H and H is stable. 3. Clear diet today. 4. Continue to monitor CBC every 6 to 8 hours until stable. 5. We would discontinue anticoagulation as the patient is certainly high risk for GI bleeding given the ulcer as well as underlying portal hypertension with esophageal varices. 6. We would discuss with Cardiology the possibility of switching from metoprolol to either nadolol or propranolol. This can be used to help for variceal bleeding prophylaxis. 7. No NSAIDs. 8. We will schedule the patient for followup in the outpatient setting to discuss the new diagnosis of decompensated cirrhosis. We will also discuss potential repeat EGD with banding in the outpatient setting if this is within the patient's goals of care as he has multiple medical comorbidities including underlying dementia as it would seem based on several conversations with him. Thank you very much for this consult. GI will continue to follow. [id number]/[facility] #: [id number] ANNAMARIE
[2019-05-26] MEDS: Atorvastatin* 20 MG TAB PO SCH (22:19)
[2019-05-26] MEDS: Lidocaine Patch REMOVE* 1 NOTE MISC PATCH OFF SCH (22:22)
[2019-05-26 23:47] LABS: Hematocrit 22 % (42-52); Hemoglobin 6.9 g/dL (14.0-18.0)
[2019-05-27 05:42] LABS: Hematocrit 22 % (42-52); Hemoglobin 6.9 g/dL (14.0-18.0); Mean Corpuscular HGB Conc 32 g/dL (31-36); Mean Corpuscular Hemoglobin 28 pg (27-31); Mean Corpuscular Volume 87 fL (80-94); Mean Platelet Volume 7.3 fL (7.4-10.4); Platelet Count 113 10^3/uL (150-450); Red Blood Count 2.52 10^6 /uL (4.18-5.48); Red Cell Distribution Width 18 % (10-15); White Blood Count 6.3 10^3/uL (3.5-10.8)
[2019-05-27 06:00] LABS: BUN/Creatinine Ratio 41.2 (8-20); Calcium 8.2 mg/dL (8.6-10.3); EGFR African American 74.8 (>60); EGFR Non-African American 61.8 (>60); Potassium 3.7 mmol/L (3.5-5.0)
[2019-05-27] MEDS: Acetaminophen TAB* 325 MG PO PRN ×2 (06:21→23:24)
--- NOTE | 2019-05-27 08:16 | PN ---
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
[2019-05-27] MEDS: Insulin LISPRO* 1 UNITS UNIT SUBCUT SCH ×4 (08:35→20:53)
--- NOTE | 2019-05-27 10:01 | ECHO ---
*[facility]* [place] [address] Fax #: [phone] Transthoracic Echocardiogram Patient: Qamar Trivedi : 1940 Study Date: 05/27/2019 Age: 79 Gender: M HR: 62 bpm Height: 68 in /172.7 cm BSA: 2.31 m^2 Weight: 235.5 lb /107 kg BMI: 35.9 kg/m^2 *Sail Maker: Shruthi Mathis *Referring Physician: * Crystal Cisneros *Reading Physician: * Abhay Kramer MD Indications: SOB. History: Atrial fibrillation. Coronary artery disease. Congestive heart failure. Risk factors: Hypertension. Diabetes mellitus. Dyslipidemia. Conclusions Summary: - Left ventricle: Systolic function is normal. The estimated ejection fraction is 55-60%. Wall motion is normal; there are no regional wall motion abnormalities. - Atrial septum: No defect or patent foramen ovale is identified. - Mitral valve: There is moderate regurgitation. - Aortic valve: There is no evidence of stenosis. - Tricuspid valve: There is moderate regurgitation. - Pulmonary arteries: Systolic pressure is mildly increased, estimated to be 36 mm Hg. - Compared to study of 09/18/14, the left ventricle function is the same. The PASP is lower and the degree of mitral regurgitation is more Study data: Transthoracic echocardiogram. Procedure: Transthoracic echocardiography was performed. Image quality was good. Complete 2D, spectral Doppler, and color flow Doppler. Location: Bedside. Patient status: Inpatient. Patient room number: 416-02. Rhythm: Atrial fibrillation. Findings Left ventricle: The cavity size is normal. Wall thickness is normal. Systolic function is normal. The estimated ejection fraction is 55-60%. Wall motion is normal; there are no regional wall motion abnormalities. Left ventricular diastolic function parameters are normal. Right ventricle: The cavity size is dilated. Wall thickness is normal. Systolic function is normal. Ventricular septum: The ventricular septum is normal. Left atrium: The atrium is mildly dilated. Right atrium: The atrium is dilated. Atrial septum: No defect or patent foramen ovale is identified. Mitral valve: The leaflets are normal thickness. No echocardiographic evidence for prolapse. There is no evidence of stenosis. There is moderate regurgitation. Aortic valve: The valve is trileaflet. The leaflets are mildly calcified. There is no evidence of stenosis. There is no significant regurgitation. Tricuspid valve: The leaflets are normal thickness. There is no evidence of stenosis. There is moderate regurgitation. Pulmonic valve: The valve is structurally normal. There is no evidence of stenosis. There is trace regurgitation. Aorta: The aortic root appears normal. Pericardium: There is no significant pericardial effusion. Pulmonary arteries: Systolic pressure is mildly increased, estimated to be 36 mm Hg. Pulmonary veins: The Pulmonary veins appear normal. Measurements Left ventricle Value Ref Right atrium continued Value Ref ESTEPHANIE, LAX 4.9 cm 4.2 - 5.8 ML dim, ES, A4C (H) 4.9 cm 2.6 - ESD, LAX 3.0 cm 2.5 - 4.0 4.4 FS, LAX 40 % 25 - 43 SI dim, ES, A4C (H) 6.1 cm 3.4 - PW, ED, LAX (H) 1.1 cm 0.6 - 1.0 5.3 FS 40 % 25 - 43 Mid-wall FS 16 % --------- Aortic valve Value Ref PW, ED (H) 1.1 cm 0.6 - 1.0 Peak v, S 2.01 m/sec -------- PW/ID, ED 0.23 --------- VTI, S 39.2 cm -------- E', lat isa, TDI 13.1 cm/sec >=10.0 Mean grad, S 8.7 mm Hg - ------- E/e', lat isa, TDI 6 --------- Peak grad, S 16.2 mm Hg ---- ---- LVOT/AV, VTI 0.65 -------- LVOT Value Ref ratio Diam, S 1.96 cm --------- KASEY, VTI 1.94 cm^2 -------- Area 3.0 cm^2 --------- KASEY, Vmax 1.52 cm^2 -------- Peak eduar, S 1.02 m/sec --------- VTI, S 25.3 cm --------- Mitral valve Value Ref Peak grad, S 4 mm Hg --------- Peak E 0.81 m/sec -------- Mean grad, S 3 mm Hg --------- Peak A 0.52 m/sec -------- Decel time 259 ms -------- Ventricular septum Value Ref Peak grad, D 2.6 mm Hg -------- IVS, ED (H) 1.3 cm 0.6 - 1.0 Peak E/A ratio 1.54 -------- Right ventricle Value Ref Pulmonic valve Value Ref ESTEPHANIE, LAX 3.2 cm --------- Peak v, S 0.72 m/sec -------- ESTEPHANIE major ax, A4C (L) 5.2 cm 5.9 - 8.3 Peak grad, S 2.1 mm Hg -------- Left atrium Value Ref Tricuspid valve Value Ref LA ID 5.1 cm --------- TR peak v 2.72 m/sec <=2.8 SI dim ES, LAX 5.1 cm --------- Peak RV-RA grad, 30 mm Hg -------- ML dim, A4C 5.3 cm --------- S SI dim, A4C 5.5 cm --------- Vol, ES, 2-p 87 ml --------- Aortic root Value Ref Vol/bsa, ES, 2-p (H) 38 ml/m^2 16 - 34 Root diam 3.6 cm <4.4 Right atrium Value Ref Ascending aorta Value Ref SI dim, ES (H) 6.1 cm 3.4 - 5.3 AAo AP diam, S 3.3 cm -------- Inferior vena cava Value Ref Diam 2.3 cm -------- Legend: (L) and (H) ascencion values outside specified reference range. Prepared and electronically signed by Abhay Kramer MD 05/27/2019 10:00
[2019-05-27] MEDS: Lidocaine PATCH 5%* 1 PATCH TRANSDERM SCH (10:13)
[2019-05-27] MEDS: Analgesic BALM* 114 GM TOPICAL SCH ×2 (10:27→20:51)
[2019-05-27] MEDS: Azithromycin TAB* 250 MG PO SCH (10:28)
[2019-05-27] MEDS: Pantoprazole IV* 40 MG IV SCH ×2 (10:28→20:51)
[2019-05-27] MEDS: Furosemide TAB* 20 MG PO SCH ×2 (10:28→20:11)
[2019-05-27] MEDS: Amiodarone TAB* 200 MG PO SCH (10:28)
[2019-05-27] MEDS: Metoprolol Tartrate TAB* 25 MG PO SCH (10:28)
[2019-05-27] MEDS: Isosorbide Mononitrate ER TAB* 30 MG PO SCH (10:28)
[2019-05-27] MEDS: Venlafaxine EXT RELEASE CAP* 75 MG PO SCH (10:28)
[2019-05-27] MEDS: Artificial Tears* 15 ML BTL BOTH EYES SCH ×2 (10:46→20:51)
[2019-05-27] MEDS: cefTRIAXone(*) 1 GM in NS 0.9% 50 ML* 50 ML IVPB SCH (11:06)
[2019-05-27] MEDS ORDERED: Furosemide IV* 10 MG/ML VIAL (40 MG) IV ONE (13:30)
--- NOTE | 2019-05-27 15:07 | PN ---
Subjective Date of Service: 05/27/19 Interval History: Patient had no complains today, no chest pain or palitation or SOB. No hematemesis or overt bleeding noted overnight. Patient is forgetful. Objective Active Medications: Acetaminophen (Tylenol Tab*) 650 mg PO Q6H PRN PRN Reason: PAIN - MILD Last Admin: 05/27/19 06:21 Dose: 650 mg Albuterol/Ipratropium (Duoneb (Albuterol 2.5 Mg/Ipratropium 0.5 Mg)) 1 neb INH Q4H PRN PRN Reason: SOB/WHEEZING Last Admin: 05/26/19 22:49 Dose: 1 neb Amiodarone HCl (Cordarone Tab*) 200 mg PO QAM [facility] Last Admin: 05/27/19 10:28 Dose: 200 mg Atorvastatin Calcium (Lipitor*) 20 mg PO BEDTIME [facility] Last Admin: 05/26/19 22:19 Dose: 20 mg Azithromycin (Zithromax Tab*) 250 mg PO DAILY [facility] Stop: 05/31/19 09:01 Last Admin: 05/27/19 10:28 Dose: 250 mg Dextrose (D50w Syringe 50 Ml*) 12.5 gm IV PUSH .FOR FS < 60 - SS PRN PRN Reason: FS < 60 Furosemide (Lasix Tab*) 20 mg PO BID [facility] Last Admin: 05/27/19 10:28 Dose: 20 mg Ceftriaxone Sodium 1 gm/ (Sodium Chloride) 50 mls @ 100 mls/hr IVPB Q24H [facility] Last Admin: 05/27/19 11:06 Dose: 100 mls/hr Insulin Glargine (Lantus(*)) 20 units SUBCUT BEDTIME [facility] Insulin Human Lispro (Humalog*) 0 units SUBCUT ACHS [facility]; Protocol Last Admin: 05/27/19 12:02 Dose: Not Given Isosorbide Mononitrate (Imdur Er Tab*) 30 mg PO DAILY [facility] Last Admin: 05/27/19 10:28 Dose: 30 mg Lidocaine (Lidoderm 5% Patch*) 1 patch TRANSDERM DAILY [facility] Last Admin: 05/27/19 10:13 Dose: 1 patch Metoprolol Tartrate (Lopressor Tab*) 25 mg PO BID [facility] Last Admin: 05/27/19 10:28 Dose: 25 mg Multi-Ingredient Liniment/Rub (Roberto Rice*) 1 applic TOPICAL BID [facility] Last Admin: 05/27/19 10:27 Dose: 1 applic Pantoprazole Sodium (Protonix Iv*) 40 mg IV BID [facility] Last Admin: 05/27/19 10:28 Dose: 40 mg Pharmacy Profile Note (Lidocaine Patch Remove*) 1 note PATCH OFF BEDTIME [facility] Last Admin: 05/26/19 22:22 Dose: 1 note Polyvinyl Alcohol (Polyvinyl Alcohol 1.4% Opth*) 4 drop BOTH EYES BID [facility] Last Admin: 05/27/19 10:46 Dose: 4 drop Venlafaxine HCl (Effexor Xr Cap*) 75 mg PO DAILY [facility]; Protocol Last Admin: 05/27/19 10:28 Dose: 75 mg Vital Signs - 8 hr 05/27/19 05/27/19 05/27/19 07:15 08:00 11:15 Temperature 97.8 F 97.8 F Pulse Rate 62 63 Respiratory 16 16 18 Rate Blood Pressure 110/51 115/55 (mmHg) O2 Sat by Pulse 93 100 Oximetry Oxygen Devices in Use Now: Nasal Cannula Exam: Oxygen Devices in Use Now: Nasal Cannula Appearance: NAD Eyes: No Scleral Icterus, PERRLA Neck: NL Appearance and Movements; NL JVP, Trachea Midline Respiratory: Symmetrical Chest Expansion and Respiratory Effort, decreased air entry up to mid lungs with crackles heard bilaterally Cardiovascular: RRR, no murmur. Abdominal: - - distended, NTTP, no rebounding or guarding Skin: No Rash or Ulcers Neurological: Alert and Oriented x 3 Result Diagrams: 05/27/19 05:29 05/27/19 05:29 Microbiology and Other Data: Microbiology 05/24/19 16:15 Nasal Screen MRSA (PCR) - Final Nasal Mrsa Not Detected 05/24/19 12:12 Stool Occult Blood (ALISHA) - Final Stool Assess/Plan/Problems-Billing Assessment: 79 M h/o IDDM, CAD, afib on AC, COPD p/w shortness of breath, found with profound anemia (Hb 3.8) s/p 5 U PRBC also fundus ulcer and non bleeding esophageal varices. His hospitalization complicated by newly found decompensated liver cirrhosis with varices, ascites. - Patient Problems (1) GI bleeding Current Visit: Yes Status: Acute Code(s): K92.2 - GASTROINTESTINAL HEMORRHAGE, UNSPECIFIED SNOMED Code(s): 14249728 Comment: -was 3.8 on presentation; received 5 U BT till 05/26, Hb 6.9 this morning -Endoscopy showing fundus ulcer and a large esophageal varice but no active bleeding -Continue PPI IV bid -Hold anticoagulant -will transfuse 1U at slow rate today, target Hb >7 -Will need banding of varices in the future, will f/u with Dr. Vu outpatient. - trace LINDA test (2) Liver cirrhosis secondary to ARIAS Current Visit: Yes Status: Acute Code(s): K75.81 - NONALCOHOLIC STEATOHEPATITIS (ARIAS); K74.60 - UNSPECIFIED CIRRHOSIS OF LIVER SNOMED Code(s) : 010828447 Comment: - new diagnosis, decompensated, with ascites, varices - HepB not immuned, hep C neg - start on nadolol (replace metoprolol) - diuretics: furosemide as well as spironolactone,will start spironolactone at 50mg daily, try to increase to 100mg if tolerates; decreasing furosemide at the meantime - SBP prophylaxis: iv ceftriaxone on - hep B vaccination on discharge - will follow up with GI (3) Pneumonia Comment: -has consolidation on CT -started on ceftriaxone and azithro(05/25), will complete the course -neg urine strep and pneumo Ag -QTC is 481, watch closely with azithromycin (4) Afib Comment: -c/w metoprolol, amiodarone. - switch metoprolol to nadolol, will monitor HR closely -holding all anticoagulation due to bleeding risk higher than thrombosis risk (5) Diabetes Comment: -takes 220 mg long acting at home-> will trace record -decreased further to 20U bid On lispro ss A1c is 5.9 (6) Acute exacerbation of CHF (congestive heart failure) Current Visit: No Status: Acute Code(s): I50.9 - HEART FAILURE, UNSPECIFIED SNOMED Code(s): 451886482 Comment: -e/o diastolic HF on past TTE with preserved EF in 2014 -has crackles and SOB and increased oxygen requirement after blood transfusion -will give iv lasix after transfusion today, slow transfusion today, watch fluid status closely. - adding spironolactone as mentioned previously (7) DNR (do not resuscitate) Current Visit: Yes Status: Acute (8) DVT prophylaxis Current Visit: Yes Status: Acute Code(s): CVI2184 - SNOMED Code(s): 721252562 Comment: SCDs Status and Disposition: Inpatient GI following Attestation Documenting Resident: Apryl Reid Supervising Physician: Ailn Parker Attending/Supervising Physician Comment: Agree with plan as outlined in note from today by Dr. Reid unless indicated here. Upper GIB 2/2 gastric ulcer on anticoagulation for afib found with cirrhosis and new ascites. Adding 25mg spironolactone 2/2 soft BPs, uptitrate as tolerated. Nadolol in lieu of metoprolol 2/2 esophageal varicies which will need banding as outpatient when more stable from a pulmonary perspective. PNA on abx, following QTc on azithro which is being used instead of doxy 2/2 gastric irritation. 1 U PRBC slowly today with attention to respiratory status. CTX for PNA and SBP prophylaxis. Will need at least 7 days abx which can be completed oral (norfloxacin) for sbp ppx. Attestation: This service has been performed in part by a resident under the direction of a teaching physician.I, Alin Parker, performed the service, or was physically present during the critical, or valdivia portions of the service, furnished by the resident. I participated in the management of the patient.
[2019-05-27] MEDS: Atorvastatin* 20 MG TAB PO SCH (20:11)
[2019-05-27] MEDS: Lidocaine Patch REMOVE* 1 NOTE MISC PATCH OFF SCH (21:00)
[2019-05-27] MEDS ORDERED: Insulin GLARGINE(*) 1 UNITS UNIT SUBCUT SCH (21:00)
[2019-05-28] MEDS: Acetaminophen TAB* 325 MG PO PRN (06:20)
[2019-05-28 06:22] LABS: ABS Eosinophils 0.2 10^3/ul (0-0.6); ABS Lymphocytes 0.9 10^3/ul (1.0-4.8); ABS Monocytes 0.9 10^3/ul (0-0.8); ABS Neutrophils 3.7 10^3/ul (1.5-7.7); Eosinophil % 3.7 %; Hematocrit 24 % (42-52); Hemoglobin 7.6 g/dL (14.0-18.0); Lymphocyte % 15.8 %; Mean Corpuscular HGB Conc 32 g/dL (31-36); Mean Corpuscular Hemoglobin 28 pg (27-31); Mean Corpuscular Volume 88 fL (80-94); Mean Platelet Volume 6.9 fL (7.4-10.4); Nucleated Red Blood Cells % 0.1; Platelet Count 101 10^3/uL (150-450); Red Blood Count 2.71 10^6 /uL (4.18-5.48); Red Cell Distribution Width 17 % (10-15); White Blood Count 5.7 10^3/uL (3.5-10.8)
[2019-05-28 06:40] LABS: BUN/Creatinine Ratio 33.3 (8-20); Calcium 8.1 mg/dL (8.6-10.3); EGFR Non-African American 70.3 (>60); Potassium 3.6 mmol/L (3.5-5.0)
[2019-05-28] MEDS: Insulin LISPRO* 1 UNITS UNIT SUBCUT SCH ×2 (08:33→12:45)
[2019-05-28] MEDS ORDERED: Nadolol TAB* 40 MG PO SCH (09:00)
[2019-05-28] MEDS ORDERED: Spironolactone TAB* 25 MG PO SCH ×3 (09:00)
[2019-05-28] MEDS: cefTRIAXone(*) 1 GM in NS 0.9% 50 ML* 50 ML IVPB SCH (09:28)
[2019-05-28] MEDS: Venlafaxine EXT RELEASE CAP* 75 MG PO SCH (09:29)
[2019-05-28] MEDS: Azithromycin TAB* 250 MG PO SCH (09:30)
[2019-05-28] MEDS: Furosemide TAB* 20 MG PO SCH (09:30)
[2019-05-28] MEDS: Isosorbide Mononitrate ER TAB* 30 MG PO SCH (09:31)
[2019-05-28] MEDS: Amiodarone TAB* 200 MG PO SCH (09:32)
[2019-05-28] MEDS: Pantoprazole IV* 40 MG IV SCH (09:34)
[2019-05-28] MEDS: Artificial Tears* 15 ML BTL BOTH EYES SCH (09:42)
[2019-05-28] MEDS: Analgesic BALM* 114 GM TOPICAL SCH (09:43)
[2019-05-28] MEDS: Lidocaine PATCH 5%* 1 PATCH TRANSDERM SCH (09:47)
--- NOTE | 2019-05-28 13:50 | DS ---
Resident Discharge Summary Discharge Summary: Date of Admission: 05/24/19 Date of Discharge: 05/28/19 Admitting MD: Julio Hyde MD Attending MD: Alin Parker MD Primary Care Physician: Romelia Sanz NP Home Medications Medication Instructions Recorded Confirmed Type Amiodarone TAB* [Cordarone Tab*] 200 mg PO QAM 06/06/12 05/24/19 History Donepezil TAB* [Aricept 5 MG TAB*] 10 mg PO BEDTIME 06/06/12 05/24/19 History Isosorbide Mononitrate ER TAB* 30 mg PO DAILY 02/24/15 05/24/19 History [Imdur ER TAB*] Acetaminophen TAB* [Tylenol TAB*] 650 mg PO TID PRN 05/24/19 05/24/19 History Al Hydrox/Mg Hydrox/Simet LIQ* 30 ml PO Q6H PRN 05/24/19 05/24/19 History [Maalox Plus*] Albuterol/Ipratropium NEB.SONIA* 1 neb INH Q6H PRN 05/24/19 05/24/19 History [Duoneb (Albuterol 2.5 MG/Ipratropium 0.5 MG)] Artificial Tears* 15 ML BTL 4 drop BOTH EYES BID 05/24/19 05/24/19 History [Polyvinyl Alcohol 1.4% OPTH*] Atorvastatin* [Lipitor 20 MG*] 20 mg PO BEDTIME 05/24/19 05/24/19 History Bisacodyl 10 mg SUPP [Dulcolax 10 mg NV DAILY PRN 05/24/19 05/24/19 History Supp*] Diclofenac 1% GEL (NF) [Voltaren 1 applic TOPICAL BID 05/24/19 05/24/19 History 1% GEL (NF)] Eucalyptus/Menthol [Cough Drops] 5 mg PO Q4H PRN 05/24/19 05/24/19 History Omeprazole 20 mg PO DAILY 05/24/19 05/24/19 Rx Furosemide TAB* [Lasix TAB*] 20 mg PO BID 05/24/19 05/24/19 History Ketoconazole [Nizoral A-D] 1 applic TOPICAL MO 05/24/19 05/24/19 History Lidocaine PATCH 5%* [Lidoderm 5% 4 % TRANSDERM DAILY 05/24/19 05/24/19 History Patch*] Magnesium Hydroxide LIQ* [Milk of 30 ml PO DAILY PRN 05/24/19 05/24/19 History Magnesia LIQ*] Methyl Salicylate/Menthol [Muscle 1 applic TOPICAL BID 05/24/19 05/24/19 History Rub Cream] Venlafaxine CAP (NF) [Effexor CAP 75 mg PO DAILY 05/24/19 05/24/19 History (NF)] Amoxicillin/Clavulanate TAB* 875 mg PO BID #8 tab 05/28/19 Rx [Augmentin TAB 875*] Azithromycin TAB* [Zithromax TAB 250 mg PO DAILY 3 Days tab 05/28/19 Rx (Z-CHRISTIE) 250 mg #6 tabs] Insulin GLARGINE(*) [Lantus 100 20 units SUBCUT BID #0 unit 05/28/19 Rx units/ml 10 ml VIAL (*)] Nadolol TAB* [Corgard TAB*] 20 mg PO DAILY #0 tab 05/28/19 Rx Spironolactone TAB* [Aldactone TAB 25 mg PO DAILY tab 05/28/19 Rx 25 MG*] Disposition: Discharge to [facility] Condition: Stable Primary Diagnosis: 1. Gastrointestinal Bleeding 2. Decompensated liver cirrhosis with ascites and varicose veins 3. Pneumonia Secondary Diagnosis: 1. Coronary Artery disease 2. Diabetes 3. Hyperternsion 4. Hyprlipidemia 5. Atrial fibrillation 6. COPD 7. GERD Diagnostic Imaging: CXR 05/26/19: pulmonary effision with large lung vilumes. US abdomen 05/25: moderate amount of clear ascites seen. EGD 05/26: medium to large size esophageal varices with high risk tigmata. Gastric fundus clean-based ulcer, certainly could be sources of bleeding in the setting of anticoagulation. Nodular antral erythema, mild portal hypertension. TTE 05/26/19: EF 55-60%, moderate mitral valve regurgitation and moderate tricuspid valve regurgitation. Mild increased PA pressure at 36mmhg. Pertinent Laboratory Results: CBC: TW 5.7, Hb 7.6, plt 101 BMP: Na 142, K 3.6, bicarb 29, creatinine 1.02 hepB : not immune, hep C neg Hospital Course: Qamar Trivedi is a 79yr male with a history of CAD, diabetes, hypertension, hyperlipidemia, Afib on Eliquis, who presented with shortness of breath to [facility] on 05/24/19, found to have severe anemia with hemoglobin 3.8 and pulmonary edema in CXR on admission. Please refer to H&P dated 05/24/19 for more information. Medical problems during this hospitalization is listed as below, 1) GI bleeding due to gastric ulcer in the setting of anticoagulation use His Eliquis was stopped, he was given Kcentra, and was transfused with PRBC. He had an upper endoscopy which showed a gastric fundus ulcer and large esophageal varices, for which the former was thought to be the cause of bleeding. He received iv PPI, and monitored closely, he eventually stabilized with no more active GI bleeding, his hemoglobin reached 7.6 on the day of discharge. 2) Newly diagnosed decompensated liver cirrhosis During this admission, he was newly diagnosed with decompensated liver cirrhosis with ascites found in US abdomen and esophageal ulcer found in EGD. 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 He was on abx for SBP prophylaxis during this admission. His medication was optimized for his newly diagnosed liver cirrhosis, he was switched from metoprolol to nadolol, low dose spironolactone was added with a intention to increase further. He will be followed by diving fisher Dr. Vu outpatient, endoscopic banding will be needed for his varices in the future. 3) Pneumonia He was found to have bibasilar airspace opacification with air bronchograms in CT scan which is concerning for pneumonia. He was treated with iv ceftriaxone and azithromycin during this admission, and oralized to Augmentin and azithromycin on discharge, with the goal of completing 7 days and 5 days respectively. 4) HFpEF An echocardiogram was performed in view of his pulmonary edema and anasarca in the setting of CAD, AFib and HF. His EF is preserved at 55-60% with no regional wall abnormality, moderate mitral valve regurgitation, and mild pulmonary hypertension was found. He was increased on diuretics during this hospitalization but it was limited due to his borderline BP (mostly at 100- 110mmhg systolic). Again, his generalized swelling and SOB is multifactorial in this case, decompensated liver cirrhosis probably is the foremost contributor, while his heart condition is also contributing to it. 5) Diabetes medication adjustment Based on the medication record obtained from [facility], he was on 100+ U lantus every day as well as two other DM meds. However this admission we noted multiple episode of hypoglycemia despite lower dose of lantus and stopping all other DM meds. This could be related to his worsening liver reserve if the medication list was not wrong. We cut down lantus to 20U twice daily on discharge with glucose ranging 100-200, close monitoring will be needed in [facility]. On the day of discharge, patient was comfortable with his usual O2 requirement 2L, no SOB, no overt bleeding, physical examination still showing bilateral pedal edema up to shins, ascites, and decreased air entry bibasally. He definitely further medication adjustment and follow up outpatient after discharge for his multiple medical problems. But he is medically stable for discharge on the day of discharge. Follow Up Instructions: Please follow up with the followings after discharge 1) your primary care, vital signs, blood glucose need to be closely monitored after discharge 2) Industrial Paramedic Dr. Vu, further endoscopic banding procedure to prevent esophageal bleeding will be needed in the future. You weight needs to be closely monitored, if significant weight gain, seek for medical advise. Check your glucose in [facility] 4 times per day for the first week due to significant medication adjustment. HepB vaccinations will be recommended considering your newly diagnosed liver cirrhosis. In case of an emergency or after clinic hours, please go to your nearest Emergency Department. You may also call the [facility] slag motor operator at ( [phone]. Attestation Documenting Resident: Apryl Reid Supervising Physician: Alin Parker Attending/Supervising Physician Comment: Agree with discharge details as outlined here by Dr. Reid unless indicated. Acute blood loss anemia in setting of gastric ulcer in fundus s/p 6 unit PRBC over course of hospital stay. No evidence of overt bleeding was seen and a slow GIB in setting of ulcer on anticoagulation for afib is suspected. Anticoagulation now held in setting of GIB and varices prior to banding. Started on PPI daily. Cirrhosis - noted incidentally on CT abd/pelvis. Started on aldactone, lasix continued. Esophageal varicies noted on EGD which were not banded 2/2 minimal sedation given in setting of respiratory status. PNA - CTX/azithro and to complete course PO s/p discharge At follow up: 1. Check H/H 2. Uptitrate aldactone as BP allows 3. Ensure follow up with GI for definitive therapy for esophageal varices 4. Consider resumption of anticoagulation for afib when deemed safe 5. Titrate diabetic medications as necessary. As noted his lantus dose was substantially decreased during the course of this hospital stay. Attestation: This service has been performed in part by a resident under the direction of a teaching physician.I, Alin Parker, performed the service, or was physically present during the critical, or valdivia portions of the service, furnished by the resident. I participated in the management of the patient.
[2019-05-28 19:42] VITALS: BP 116/54
[2019-05-29] MEDS ORDERED: Spironolactone TAB* 25 MG PO SCH (09:00)
== END 2019-05-28 17:30 | DRG 377 ==
LOC: ED 11:57 → MED 13:44
PROVIDERS: ADMIT Internal Medicine; ATTEND Internal Medicine
PROC: 30233N1 Transfusion of Nonautologous Red Blood Cells into Peripheral Vein, Percutaneous Approach (ICD-10-PCS; 2019-05-24)
PROC: 0DJ08ZZ Inspection of Upper Intestinal Tract, Via Natural or Artificial Opening Endoscopic (ICD-10-PCS; principal; 2019-05-26)
DX: K92.1 Melena (principal); J18.9 Pneumonia, unspecified organism; I50.31 Acute diastolic (congestive) heart failure; R18.8 Other ascites; K76.6 Portal hypertension; K22.10 Ulcer of esophagus without bleeding; J98.11 Atelectasis; N17.9 Acute kidney failure, unspecified; E11.649 Type 2 diabetes mellitus with hypoglycemia without coma; K74.60 Unspecified cirrhosis of liver; Z66 Do not resuscitate; K75.81 Nonalcoholic steatohepatitis (NASH); I11.0 Hypertensive heart disease with heart failure; I83.90 Asymptomatic varicose veins of unspecified lower extremity; I25.10 Atherosclerotic heart disease of native coronary artery without angina pectoris; E78.5 Hyperlipidemia, unspecified; I48.91 Unspecified atrial fibrillation; J44.9 Chronic obstructive pulmonary disease, unspecified; K21.9 Gastro-esophageal reflux disease without esophagitis; E66.9 Obesity, unspecified; F03.90 Unspecified dementia, unspecified severity, without behavioral disturbance, psychotic disturbance, mood disturbance, and anxiety; G47.30 Sleep apnea, unspecified; D64.9 Anemia, unspecified; K31.89 Other diseases of stomach and duodenum; F32.9 Major depressive disorder, single episode, unspecified; K31.7 Polyp of stomach and duodenum; K25.9 Gastric ulcer, unspecified as acute or chronic, without hemorrhage or perforation; I08.1 Rheumatic disorders of both mitral and tricuspid valves; Z96.652 Presence of left artificial knee joint; Z68.37 Body mass index [BMI] 37.0-37.9, adult; Z79.01 Long term (current) use of anticoagulants; Z79.4 Long term (current) use of insulin; Z79.899 Other long term (current) drug therapy; Z88.5 Allergy status to narcotic agent; Z88.8 Allergy status to other drugs, medicaments and biological substances; Z91.041 Radiographic dye allergy status; Z82.49 Family history of ischemic heart disease and other diseases of the circulatory system; Z80.3 Family history of malignant neoplasm of breast; Z87.891 Personal history of nicotine dependence
CPT/HCPCS: 36415; 71045; 74176; 76705; 80048; 80053; 82270; 82607; 82728; 82746; 83036; 83540; 83550; 83880; 84484; 85014; 85018; 85025; 85027; 85610; 85730; 86706; 86803; 86850; 86900; 86901; 86922; 86927; 87077; 87641; 87899; 93005; 93306; 94640; 99156; 99285; A9270-GY; J0696; J1940; J2250; J3010; P9017; P9040